=== PATIENT | male | born 1950 | race Caucasian/White ===

== ENCOUNTER 2019-05-24 06:12 | Day surgery (SDC) | payer MEDICARE, BC ==
--- NOTE | 2019-04-19 06:52 | History and Physical - [facility] ---
CHIEF COMPLAINT/HISTORY OF CHIEF COMPLAINT: This patient presents with a history of an intractable post lumbar laminectomy radiculopathy. Due to the failure of all therapies the patient is here for an implanted spinal catheter infusion trial of Hydromorphone to determine if the implantation of a permanent system can be of any value in pain control. PAST MEDICAL HISTORY: Chronic obstructive pulmonary disease, sleep apnea, hypertension, cardiovascular disease, peripheral edema, reflux esophagitis, gastritis, diverticular disease, degenerative arthritis, and depression. PAST SURGICAL HISTORY: Extensive list to be provided. MEDICATIONS ON ADMISSION: List to be provided. ALLERGIES: None. EMPLOYMENT STATUS: Retired. FAMILY/PSYCHOSOCIAL HISTORY: Social history - Smoking and social alcohol. Family history - Coronary artery disease and hypertension. SYSTEMS REVIEW: The patient seems appropriate in no acute distress. PHYSICAL EXAMINATION: Height is 5'6", weight is 200 pounds. No vital signs. HEENT: Within normal limits. LUNGS: Clear. HEART: Rapid and regular. ABDOMEN: Nontender. MUSCULOSKELETAL: Examination of the musculoskeletal system shows diffuse tenderness throughout the lumbar spine adjacent to a laminectomy scar. Range of motion produces pain throughout the low back into both lower extremities. There are motor and sensory abnormalities to both legs. An assistive device is utilized. NEUROLOGIC: Cranial nerves are intact. 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 PLAN: The patient is here for an implanted spinal catheter infusion trial using Hydromorphone to determine if the implantation of a permanent system can be of any value in pain control. The procedure will require an overnight stay because of the epidural blood patch and the protocol to keep flat for four and slowly elevate for one. He will be discharged in the morning. All of the potential risks, side effects, and complications have been reviewed and discussed including the pre-existing peripheral edema which may risk this patient for worsening edema through the spinal infusion. He understands and has consented and approved. He was put in contact with a clinical specialist from [facility] who also explained the risks, side effects, and complications. JOB NUMBER: [id number] MTDD
[~2019-05-24 06:12] MED LIST: ACETAMINOPHEN 1,000 MG/100 ML BTL IVPB ONE; CLINDAMYCIN 600MG/50ML PREMIX 600 MG/50 ML BAG IVPB ONE; FAMOTIDINE 20MG TABLET PO ONE; HYDROMORPHONE PF 2MG/ML AMP 0.008 MG in 0.9 % SODIUM CHLORIDE 10ML VIA 0.996 ML IV ONE; HYDROMORPHONE PF 2MG/ML AMP 8 MG in 0.9 % SODIUM CHLORIDE 500ML 496 ML IV ONE; MECLIZINE 25 MG TABLET PO ONE; METOCLOPRAMIDE 10 MG TABLET PO ONE; VANCOMYCIN 1GM/200ML PREMIX 1 GM/200 ML PIGGYBACK IVPB ONE; VANCOMYCIN HCL 1,000 MG in 0.9 % SODIUM CHLORIDE 250ML 250 ML IVPB ONE
[2019-05-24] MEDS ORDERED: PROPOFOL 10 MG/ML VIAL IV ONE (06:13)
[2019-05-24] MEDS ORDERED: 0.9 % SODIUM CHLORIDE 100ML BAG IV ONE (06:13)
[2019-05-24] MEDS ORDERED: Clindamycin 600mg vial 150 MG/ML VIAL IVPB ONE (06:13)
[2019-05-24] MEDS ORDERED: GLYCOPYRROLATE 0.2 MG/ML ML IV ONE (06:13)
[2019-05-24] MEDS ORDERED: LIDOCAINE 2% MDV (20MG/ML) 20ML VIAL IV ONE (06:13)
[2019-05-24] MEDS ORDERED: *PACU ONLY* KETAMINE HCL 10 MG/ML (20ML) VIAL IV ONE (06:13)
[2019-05-24] MEDS ORDERED: FENTANYL PF 100MCG/2ML VIAL IV ONE (06:13)
[2019-05-24] MEDS ORDERED: MIDAZOLAM HCL 2MG/2ML VIAL IV ONE (06:13)
--- NOTE | 2019-05-24 06:40 | History and Physical - [facility] ---
CHIEF COMPLAINT/HISTORY OF CHIEF COMPLAINT: This patient presents with a history of multiple lumbar laminectomies and pain which is low back and bilateral lower extremity. Diagnostics confirm multiple level fusion and a moderately severe thoracolumbar rotoscoliosis. It would appear that there are perhaps ten levels of screws and rods throughout the thoracic and lumbar spine as well as fusion involving the left sacroiliac joint. Due to the failure of therapy he is here for an implanted catheter infusion trial using Hydromorphone to determine if the implantation of a permanent system can be of any value in pain control being referred by his neurosurgeon. PAST MEDICAL HISTORY: Chronic obstructive pulmonary disease, sleep apnea, hypertension, cardiovascular disease, peripheral edema, reflux esophagitis, gastritis, diverticular disease, degenerative arthritis, and depression. PAST SURGICAL HISTORY: Extensive list to be provided. EMPLOYMENT STATUS: Retired. MEDICATIONS ON ADMISSION: List to be provided. ALLERGIES: None. FAMILY/PSYCHOSOCIAL HISTORY: Social history - Smoking and social alcohol. Family history - Coronary artery disease and hypertension. SYSTEMS REVIEW: The patient seems appropriate in no acute distress. PHYSICAL EXAMINATION: Height is 5'6", weight is 200 pounds. No vital signs. HEENT: Within normal limits. LUNGS: Clear. HEART: Rapid and regular. ABDOMEN: Nontender. MUSCULOSKELETAL: Examination of the musculoskeletal system shows diffuse tenderness throughout the thoracic and lumbar spine. An extensive surgical scar is noted. Lower extremity functionality shows pain, numbness and weakness across both legs and an assistive device is required. Significant motor and sensory abnormalities are identified. NEUROLOGIC: Cranial nerves are intact. IMPRESSION: POST LUMBAR LAMINECTOMY SYNDROME, ICD-10 CODE M96.1 WITH MODERATELY SEVERE THORACOLUMBAR ROTOSCOLIOSIS, ICD-10 CODE M41.25 AND LUMBAR RADICULOPATHY, ICD-10 CODE M54.16 AND M54.17. PLAN: The patient is here for an implanted spinal catheter infusion trial using Hydromorphone to determine if the implantation of a permanent system can be of any value in pain control. The potential risks, side effects and complications have been reviewed and discussed in detail. Contact with a clinical specialist from [facility] was also provided to review in detail the potential risks, side effects and complications. The procedure will involve an overnight stay. An epidural blood patch will be performed and this require the patient flat for four and slowly elevated for one, but he will be kept overnight to insure appropriate compliance and discharge in the morning. JOB NUMBER: [id number] MTDD
[2019-05-24] MEDS ORDERED: RINGERS SOLUTION,LACTATED 1,000 ML IV ONE (06:55)
[2019-05-24] MEDS ORDERED: LIDOCAINE 1% W/EPI 1:100,000 MDV 20 ML VIAL SQ ONE (09:07)
[2019-05-24] MEDS ORDERED: BUPIVACAINE 0.5% W/EPI MPF 30 ML VIAL SQ ONE (09:08)
[2019-05-24] MEDS ORDERED: CAFFEINE/SODIUM BENZOATE 250MG 500 MG in 0.9 % SODIUM CHLORIDE 100ML 100 ML IVPB ONE ×2 (09:53→14:00)
[2019-05-24] MEDS ORDERED: HYDROMORPHONE HCL 2 MG/ML VIAL IM PRN ×2 (10:30)
[2019-05-24] MEDS ORDERED: RINGERS SOLUTION,LACTATED 1,000 ML IV SCH (10:30)
[2019-05-24] MEDS ORDERED: SENNOSIDES/DOCUSATE SODIUM UD CAPSULE PO PRN ×2 (10:30)
[2019-05-24] MEDS ORDERED: DIPHENHYDRAMINE HCL 50 MG/ML VIAL IVP PRN ×2 (10:30)
[2019-05-24] MEDS ORDERED: AL HYDROX/MAG HYDROX 30ML UD PO PRN (10:30)
[2019-05-24] MEDS ORDERED: TEMAZEPAM 15 MG CAPSULE PO PRN ×2 (10:30)
[2019-05-24] MEDS ORDERED: OXYCODONE/APAP 10MG-325MG TABLET PO PRN ×2 (10:30)
[2019-05-24] MEDS ORDERED: HYDROCODONE/APAP 7.5/325MG TABLET PO PRN (10:30)
[2019-05-24] MEDS ORDERED: METOCLOPRAMIDE 10 MG TABLET PO PRN (10:30)
[2019-05-24] MEDS ORDERED: NALOXONE 0.4 MG/1 ML VIAL IVP PRN (10:30)
[2019-05-24] MEDS ORDERED: DIPHENHYDRAMINE HCL 25 MG CAPSULE PO PRN (10:30)
[2019-05-24] MEDS ORDERED: ACETAMINOPHEN 325 MG TAB PO PRN (10:30)
[2019-05-24] MEDS ORDERED: METOCLOPRAMIDE HCL 10 MG/2 ML VIAL IVP PRN (10:30)
[2019-05-24] MEDS: HYDROCODONE/APAP 7.5/325MG TABLET PO PRN ×3 (11:31→23:28)
[2019-05-24] MEDS ORDERED: FLU VAC QS 2019-20 (INPT, 6MO+) 60MCG/0.5ML IM ONE (14:12)
[2019-05-24] MEDS ORDERED: VANCOMYCIN 1GM/200ML PREMIX 1 GM/200 ML PIGGYBACK IVPB ONE (19:00)
[2019-05-24] MEDS ORDERED: TRAZODONE 50 MG TABLET PO SCH (22:00)
[2019-05-24] MEDS ORDERED: QUETIAPINE FUMARATE 25 MG TABLET PO SCH (22:00)
[2019-05-24] MEDS: DIPHENHYDRAMINE HCL 25 MG CAPSULE PO PRN (23:28)
[2019-05-25] MEDS: DIPHENHYDRAMINE HCL 25 MG CAPSULE PO PRN (00:14)
[2019-05-25] MEDS: HYDROCODONE/APAP 7.5/325MG TABLET PO PRN ×3 (03:57→10:14)
--- NOTE | 2019-05-25 08:20 | Operative Note ---
DATE OF SURGERY: 05/24/2019 PREOPERATIVE DIAGNOSIS: Post lumbar laminectomy syndrome, ICD10 code M96.1, with lumbar radiculopathy, ICD10 code M54.16 and M54.17. OPERATION: 1. Fluoroscopic-guided access spinal space at L3-4, placement of thin-walled spinal catheter T11-12. 2. Diagnostic myelography with radiologic supervision and interpretation. 3. Spinal opioid bolus hydromorphone 0.004 mg into spinal space. 4. Incision, subcutaneous dissection, anchoring spinal catheter to supraspinatus fascia with a [employer] anchor and nonabsorbable suture. 5. Incision, subcutaneous dissection, and creation of subcutaneous pouch at left flank ultimately for pump placement. 6. Tunneling between spinal catheter incision and pouch into flank pouch extending spinal catheter into flank. 7. Interface spinal catheter to second catheter component by way of a connector, tunneling second catheter component 6 cm superior exiting the skin. 8. Interface external catheter to external pump set to deliver hydromorphone at 0.12 mg a day. 9. Closure of midline incisions using Stratafix suture, 2-0 fascia, 3-0 skin. Closure of left flank incision suing running nylon. 10. Appropriate dressings placed securing catheter and all connections under sterile dressing as well as covering incisional sites. 11. Transporting patient to recovery room flat, pillow under head and knees. No blood patch performed because of lack of access. Patient stable. No unusual side effects. Full functionality of extremities. SURGEON: Vikas Santos DO ANESTHESIA: Local with sedation. ANESTHESIA PROVIDER: Emilia Elizabeth INDICATION: This is a patient with a history of 10-level spinal fusion is here for an implanted spinal catheter infusion trial with hydromorphone to determine if the implantation of a permanent system can be of any value in pain control. PROCEDURE: Intravenous line, vital sign monitoring, IV sedation by Anesthesia. Patient positioned prone. Sterile prep, sterile technique. The spinal access at L3-4 was marked after surveying and imaging the spine from approximately T10 down to L5. Skin infiltrated at L3-4 left of the midline. A 20-gauge spinal needle with bevel at the long axis and a paramedian approach was used to gain entry into the spinal space using AP and lateral imaging. Under lateral image, the needle was walked into the spinal space. With CSF flow, a thin-walled spinal catheter was advanced, positioned midline at T11-12. This was confirmed under AP imaging and lateral imaging. With CSF flow, diagnostic myelography was performed. The resulting flow characteristics were appropriate for spinal characteristics and confirming appropriate catheter tip position. A bolus of hydromorphone 0.004 mg was given to the spinal space. The catheter was clamped to stop CSF leak. The skin above and below the needle infiltrated, incision made, and subcutaneous dissection was conducted to the supraspinous fascia. The needle was removed and the catheter was anchored to the supraspinous fascia with an anchoring device and nonabsorbable suture. At the left flank ultimately a site for the pump, skin infiltrated, incision made, and small subcutaneous pouch formed. The midline spinal catheter was tunneled into the flank pouch and then interfaced with a second catheter component. This secondary catheter component was tunneled 6 cm superior exiting the skin. The external catheter was interfaced to an external pump which was set to deliver hydromorphone at 0.12 mg a day. The midline incision was closed using Stratafix suture, 2-0 fascia, 3-0 skin. The flank incision with a running nylon. Dressings were then placed over both incisions as well as securing the catheter and all connectors under the sterile dressing. The catheter had been interfaced to an external pump, and the external infusion was running appropriately. No blood patch was performed because of lack of access from the extensive surgery. He was transported to the recovery room stable, flat, pillow under head and knees. He will stay flat for 4 hours, slowly elevated for 1, and stay overnight for observation. He will be given an intravenous caffeine solution in recovery and then followed on the floor as a prophylactic measure against a spinal headache. He tolerated the procedure well. He had full functionality. Will monitor and evaluate overnight, discharge in the morning. DISCHARGE INSTRUCTIONS: 1. Sites to remain clean and dry. No showering or bathing in any way that would disrupt dressings. If it happens, contact the clinic. 2. Standard medications resume including the antibiotic Levaquin 500 mg once a day for 14 days. 3. During a trial period of 2 weeks, he will be seen in the office 3 times for 3 increases, the first increase within the next 2-3 days. At the end of the trial period, we will either implant the permanent system or remove the implanted catheter. Instructions given, numbers to contact if problems given. He will be discharged in the morning. VALERIA
[2019-05-25] MEDS ORDERED: SPIRONOLACTONE 25 MG TAB PO SCH (10:00)
[2019-05-25] MEDS ORDERED: FLUOXETINE HCL 20 MG CAPSULE PO SCH (10:00)
[2019-05-25] MEDS ORDERED: METOPROLOL SUCC 25 MG TAB.ER PO SCH (10:00)
[2019-05-25] MEDS ORDERED: ATORVASTATIN 20 MG TABLET PO SCH (10:00)
[2019-05-25] MEDS ORDERED: LISINOPRIL 5 MG TABLET PO SCH (10:00)
[2019-05-25] MEDS ORDERED: FUROSEMIDE 20 MG TABLET PO SCH (10:00)
[2019-05-25] MEDS ORDERED: DULOXETINE HCL 30 MG CAPSULE.DR PO SCH (10:00)
[2019-05-25] MEDS ORDERED: DILTIAZEM 180MG CR CAPSULE PO SCH (10:00)
--- NOTE | 2019-05-26 08:05 | RADIOLOGY REPORT ---
EXAM: THORACOLUMBAR SPINE, ONE VIEW HISTORY: STATUS POST PAIN PUMP TRIAL. TECHNIQUE: A single AP portable supine view of the thoracic and lumbar portions of the spine were obtained. Comparison: Same day intraoperative radiographs. FINDINGS: There are changes of posterior fusion of T10 likely through the lumbosacral junction though the lumbosacral junction is not entirely included on the image. No hardware fracture is seen. There are degenerative changes scattered throughout the visualized spine. Post median sternotomy changes are identified. An interspinal catheter is in place. The level of entrance into the spinal canal is indeterminate. The tip of the catheter is at the T11-T12 level. No acute osseous abnormality identified. IMPRESSION: 1. EXTENSIVE POST FUSION CHANGES OF THE LOWER THORACIC AND LUMBAR PORTIONS OF THE SPINE. 2. INTERSPINAL CATHETER IN PLACE WITH ITS RADIOPAQUE TIP AT THE T11-T12 LEVEL. JOB NUMBER: [id number] MTDD
== END 2019-05-25 10:35 | disposition home or self-care (01) ==
LOC: SUR 06:12 → MEDSURG 10:12 → SUR 05-25 10:35
PROVIDERS: ATTEND Pain Medicine Interventional Pain Medicine
DX: M96.1 Postlaminectomy syndrome, not elsewhere classified (principal); M54.16 Radiculopathy, lumbar region; M54.17 Radiculopathy, lumbosacral region; I10 Essential (primary) hypertension; E78.00 Pure hypercholesterolemia, unspecified; F31.9 Bipolar disorder, unspecified; J44.9 Chronic obstructive pulmonary disease, unspecified; I50.9 Heart failure, unspecified; I25.10 Atherosclerotic heart disease of native coronary artery without angina pectoris; K21.9 Gastro-esophageal reflux disease without esophagitis; Z23 Encounter for immunization
CPT/HCPCS: 62350; 62362; 01936; 72020; 90686; Q9967; G0008; J3490 ×2; J3370 ×2; J3010; J1170; J7040; J7050; J7120